=== PATIENT | female | born 1995 | race Two or more races ===

== ENCOUNTER 2022-12-06 22:22 | Emergency (ER) | payer MEDICAID ==
[~2022-12-06] VITALS: Ht 170.2 cm; Wt 79.5 kg
[2022-12-06] MEDS ORDERED: SERT-158 PO (22:25)
[2022-12-06 22:50] VITALS: BP 132/75; PULSE 89; RESP 20; TEMP 98.3
[2022-12-06] MEDS ORDERED: AMOX1TAB16 PO (22:58)
[2022-12-06] MEDS ORDERED: TraMADol HCL 50 MG TABLET PO ONE (23:00)
[2022-12-06] MEDS ORDERED: PERTUSS(ACELL),DIPH,TET VAC/PF 0.5 ML SYRINGE IM. ONE (23:00)
[2022-12-06] MEDS ORDERED: AMOX TR/POT CLAV 875 MG/125 MG TABLET PO ONE (23:00)
== END 2022-12-06 23:10 | disposition home or self-care (01) ==
LOC: EMS 22:26
DX: S51.811A Laceration without foreign body of right forearm, initial encounter (principal); S51.851A Open bite of right forearm, initial encounter; F32.A Depression, unspecified; W54.0XXA Bitten by dog, initial encounter; Y93.89 Activity, other specified; Y92.89 Other specified places as the place of occurrence of the external cause; Y99.8 Other external cause status
CPT/HCPCS: 12001; 90471; 90715; 99283

== ENCOUNTER 2022-12-15 09:57 | Emergency (ER) | payer MEDICAID ==
[~2022-12-15] VITALS: Ht 172.7 cm; Wt 72.7 kg
[~2022-12-15 09:57] MED LIST: AMOX1TAB16 PO; SERT-158 PO
[2022-12-15 10:05] VITALS: BP 121/61; PULSE 76; RESP 18; TEMP 98.2
== END 2022-12-15 10:24 | disposition home or self-care (01) ==
LOC: EMS 10:03
DX: S51.851D Open bite of right forearm, subsequent encounter (principal); F32.A Depression, unspecified; Z48.02 Encounter for removal of sutures; W54.0XXD Bitten by dog, subsequent encounter
CPT/HCPCS: 99281; Z7502

== ENCOUNTER 2022-12-23 17:06 | Emergency (ER) | payer MEDICAID ==
[~2022-12-23] VITALS: Ht 170.2 cm; Wt 72.7 kg
[2022-12-23 17:09] VITALS: PULSE 88; TEMP 98.6
[2022-12-23] MEDS ORDERED: IBUPROFEN 600 MG TABLET PO ONE (22:45)
[2022-12-23 22:49] VITALS: BP 127/72; RESP 16
[2022-12-23] MEDS ORDERED: CYCL-448 PO (23:52)
[2022-12-24 00:19] LABS: ANION GAP 7 mmol/L (8-16); BASOPHILS % (AUTO) 0.4 % (0.0-2.0); CALCIUM, TOTAL 8.7 mg/dL (8.8-10.5); CARBON DIOXIDE 27 mmol/L (22-29); CHLORIDE 106 mmol/L (98-107); CREATININE 0.76 mg/dL (0.60-1.30); EOSINOPHILS % (AUTO) 0.1 % (1.0-6.0); GLOMERULAR FILTR. RATE CALC > 60 mL/min (>60); GLUCOSE,RANDOM 105 mg/dL (70-110); HEMATOCRIT 37.4 % (36-46); HEMOGLOBIN 12.2 g/dL (12.0-16.0); LYMPHOCYTES # (AUTO) 1.4 K/uL (1.0-4.8); LYMPHOCYTES % (AUTO) 11.9 % (22.0-44.0); MEAN CORPUSCULAR HEMOGLOBIN 28.8 pg (26.0-34.0); MEAN CORPUSCULAR HGB CONC 32.6 G/dL (31.0-37.0); MEAN CORPUSCULAR VOLUME 89 fL (80-100); MONOCYTES # (AUTO) 0.8 K/uL (0.1-1.0); MONOCYTES % (AUTO) 6.5 % (2.0-9.0); NEUTROPHILS # (AUTO) 9.4 K/uL (1.8-7.7); NEUTROPHILS % (AUTO) 81.1 % (40.0-70.0); PLATELET COUNT (AUTO) 203 K/uL (150-450); POTASSIUM 3.8 mmol/L (3.5-5.1); RED BLOOD CELL COUNT(AUTO) 4.23 MIL/uL (4.00-5.20); RED CELL DISTRIBUTION WIDTH 13.9 % (11.5-14.5); SODIUM SERUM 140 mmol/L (136-145)
[2022-12-24 00:24] LABS: ALANINE AMINOTRANSFERASE 18 U/L (12-78); ALKALINE PHOSPHATASE 90 U/L (46-116); ASPARTATE AMINOTRANSFERASE 18 U/L (15-37); BILIRUBIN,TOTAL 0.3 mg/dL (0.1-1.0); TOTAL PROTEIN, SERUM 7.9 g/dL (6.4-8.2)
== END 2022-12-24 | disposition home or self-care (01) ==
LOC: EMS 17:06
DX: S16.1XXA Strain of muscle, fascia and tendon at neck level, initial encounter (principal); M25.511 Pain in right shoulder; F32.A Depression, unspecified; V89.2XXA Person injured in unspecified motor-vehicle accident, traffic, initial encounter; Y93.89 Activity, other specified; Y92.89 Other specified places as the place of occurrence of the external cause; Y99.8 Other external cause status
CPT/HCPCS: 72040; 80053; 84703; 85025; 99284